=== PATIENT | male | born 1955 | race Caucasian/White ===

== ENCOUNTER 2020-01-02 04:35 | Day surgery (SDC) | payer OTHER, BC ==
[2020-01-01 12:32] VITALS: BMI 30.2
--- NOTE | 2020-01-02 10:22 | HP ---
Satellite [facility] - Chief Complaint Chief Complaint: right elbow pain, numbness - Past Medical History Allergies/Adverse Reactions: Allergies Allergy/AdvReac Type Severity Reaction Status Date / Time No Known Drug Allergies Allergy Verified 01/02/20 08:46 - Current Medications Current Medications: Home Medications Medication Instructions Recorded Atorvastatin Ca [Lipitor] 20 mg PO DAILY 09/02/15 Glimepiride 2 mg PO DAILY 09/02/15 Hydrochlorothiazide [Hctz -] 25 mg PO DAILY 09/02/15 Metformin HCl [Glucophage] 1,000 mg PO BID 09/02/15 Ramipril [Altace] 10 mg PO DAILY 09/02/15 Aspirin [ASA -] 81 mg PO DAILY 01/01/20 Pramipexole Dihydrochloride 0.25 mg PO BID 01/01/20 [Mirapex -] Hydrocodone/Acetaminophen 1 each PO Q6H #12 tablet MDD 4 01/02/20 [Hydrocodone-Acetamin 5-325 mg] Satellite Physical Exam - Physical Examination Vital Signs: Vital Signs Period Temp Pulse Resp BP Sys/Wang Pulse Ox Last 24 Hr 97.0 F 70 18 140/80 97-97 General Appearance: Well Nourished, Well Developed, Alert & Oriented x3 ENT: Clear Lung: Normal air movement Extremities: Other (right elbow- + tinels, + ttp, decr sensation, EMG + ulna neuropathy) Neurological: Intact, Alert, Oriented Satellite Impression/Plan - Impression/Plan Impression: right elbow ulna neuritis Operative Procedure: right elbow ulna nerve neurolysis Date to be Performed: 01/02/20
[2020-01-02] MEDS ORDERED: LIDOCAINE HCL 1%, 10 MG/ML (20ML VIAL) ONE (11:05)
[2020-01-02] MEDS ORDERED: ONDANSETRON 4 MG/2 ML VIAL ONE (11:12)
[2020-01-02] MEDS ORDERED: ceFAZolin SODIUM 1 GM VIAL ONE (11:12)
[2020-01-02] MEDS ORDERED: DEXAMETHASONE SOD PHOSPHATE 4 MG/1 ML VIAL ONE (11:12)
[2020-01-02] MEDS ORDERED: LIDOCAINE HCL 2% JELLY (5 ML/TUBE) ONE (11:12)
[2020-01-02] MEDS ORDERED: PROPOFOL 20 ML ONE ×2 (11:12)
[2020-01-02] MEDS ORDERED: LIDOCAINE HCL/PF 2% SDV 5ML VIAL ONE (11:12)
[2020-01-02] MEDS ORDERED: MIDAZOLAM HCL 2 MG/2 ML SINGLE DOSE VIAL ONE (11:13)
[2020-01-02] MEDS ORDERED: ceFAZolin SODIUM 1 GM VIAL IVPB ONE (11:40)
[2020-01-02] MEDS ORDERED: HYDROmorphone HCl 2 MG/ML VIAL ONE (11:41)
[2020-01-02] MEDS ORDERED: LIDOCAINE HCL 1%, 10 MG/ML (20ML VIAL) NR ONE ×2 (11:50)
[2020-01-02] MEDS ORDERED: BUPIVACAINE HCL/PF 0.5% (5 MG/ML) 30 ML VIAL IJ ONE ×2 (11:50)
--- NOTE | 2020-01-02 12:41 | OP ---
Operative Note - Note: Operative Date: 01/02/20 Pre-Operative Diagnosis: right elbow ulnar nerve neuritis Operation: right elbow ulnar nerve transposition, neurolysis Post-Operative Diagnosis: Same as Pre-op Surgeon: Cong Callejas Anesthesiologist/HYDROPONICS WORKER: Annalee Marie Anesthesia: Local, MAC Estimated Blood Loss (mls): 0 Drains, Volume Out (mls): 0 Blood Volume Replaced (mls): 0 Fluid Volume Replaced (mls): 700 Operative Report Dictated: Yes
--- NOTE | 2020-01-02 13:46 | OP ---
DATE OF OPERATION: 01/02/2020 PREOPERATIVE DIAGNOSIS: Right elbow ulnar nerve neuritis. POSTOPERATIVE DIAGNOSIS: Right elbow ulnar nerve neuritis and excessive scar tissue. PROCEDURE: Right elbow ulnar nerve transposition and neurolysis. SURGEON: Torin Bee MD ASSISTANTS: None. ANESTHESIA: Laryngeal mask anesthesia. Local injection of 20 mL 0.5% Marcaine and 1% lidocaine mix. Sincere Ayon MD; Annalee Marie, REF-CRN DRAINS: None. COMPLICATIONS: None. BLOOD LOSS: None. BLOOD GIVEN: None. FLUID REPLACEMENT: 700 mL Plasmalyte. 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 He had excessive scar tissue. After understanding the potential risks, complications, alternatives and benefits of surgery versus nonsurgical treatment, the patient elected to undergo this procedure. The patient was brought to the operating room, peripheral IV placed, IV sedation given, 2 g IV Ancef was given, LM anesthesia was induced. A tourniquet was applied to the right upper arm. The right upper extremity was prepped and draped in sterile fashion. Elevated, exsanguinated with an Esmarch bandage, the tourniquet inflated to 250 mmHg. The entire case was done under 3.8 loupe magnification. An incision was marked out within the previous incision. Then 20 mL of 0.5% Marcaine with lidocaine mix was injected in and around the surgical incision. The incision was made with a number 15 scalpel blade. Subcutaneous hemostasis was achieved with the bipolar cautery. Immediately it was apparent the patient had excessive postoperative scar tissue. Very careful dissection was done with a Littler scissors through the scar tissue. Weitlaner retractors were placed into the wound to retract the anterior and posterior flaps. The ulnar nerve was identified in the proximal portion of the surgical dissection. Circumferential dissection was done with the Littler scissors and the [place] elevator and I was able to feel it with my finger that the neurolysis was complete proximally. Then, working in a sequential fashion, going from proximal to distal, I used the Littler scissors and the [place] elevator to free it up from scar tissue, where it was going through up until the medial epicondyle and past it. It was released distally in the middle near the epicondyle and proximally. I was able to feel distal and proximal for additional points of compression. The patient had a very rajput medial intermuscular septum, which might have been a point of compression. This was released with a Littler scissors. There was also a significant band of scar tissue distal to the epicondyle near the 2 heads of the FCU. However, it was not Mccoy's ligament, as the nerve was already transposed anterior and superficial to that. The scar tissue was also cut. The patient had a lot of scar tissue right around the medial epicondyle itself and there was an hourglass deformity of the nerve itself. An epineurotomy was performed with a curved iris scissors. I was able to then transpose the nerve easily to a more anterior and subcutaneous position. The area was copiously irrigated and washed out. I put the elbow through full range of motion, directly visualizing the ulnar nerve. There were no points of compression, did not seem to be pulled under undue tension. A subcutaneous flap had been raised and the nerve was now transposed into a subcutaneous position with ample adipose tissue. A 0 Vicryl suture was used to close this deep adipose layer down to the tissue of the medial epicondyle, incorporating the posterior deep dermal layer as well. Multiple stitches were done in this fashion. I was able to floss the nerve. It moved well. I was able to feel that it was in a good subcutaneous tunnel with no points of compression. I then did the final distal and proximal suture. Next, the area was copiously irrigated and washed out. The closure had been done with the elbow at about 60 degrees of flexion, in order to transpose the nerve more anteriorly for a safer position for closure. Now, the deep dermal layer was closed with 4-0 undyed Vicryl. Final skin reapproximation was done with a running subcuticular 4-0 Biosyn stitch. The area was then washed and dried, covered with Steri-Strips, 4x4 Webril, and a 4-inch posterior Ortho-Glass splint was applied, wrapped with 2 Maurice bandages. The tourniquet was taken down after a total tourniquet time of about 45 minutes. There was no complication during the case. The patient tolerated the procedure quite well, was brought to the ambulatory recovery room in stable condition. TORIN BEE M.D. [id number]
[2020-01-02 14:55] VITALS: BP 146/95; PULSE 76; TEMP 97.8
== END 2020-01-02 15:00 | disposition home or self-care (01) ==
LOC: JASU-SURG 04:35
PROVIDERS: ATTEND Orthopaedic Surgery
PROC: 01N40ZZ Release Ulnar Nerve, Open Approach (ICD-10-PCS; 2020-01-02)
PROC: 01S40ZZ Reposition Ulnar Nerve, Open Approach (ICD-10-PCS; principal; 2020-01-02 10:30)
DX: G56.21 Lesion of ulnar nerve, right upper limb (principal); I10 Essential (primary) hypertension; E11.9 Type 2 diabetes mellitus without complications
CPT/HCPCS: 82962; 94760

== ENCOUNTER 2020-08-25 04:29 | Day surgery (SDC) | payer OTHER, BC ==
[2020-08-21 13:45] VITALS: BMI 31.8
[2020-08-25] MEDS ORDERED: DEXAMETHASONE SOD PHOSPHATE/PF 10 MG/ML SDV ONE (09:34)
[2020-08-25] MEDS ORDERED: MIDAZOLAM HCL 2 MG/2 ML SINGLE DOSE VIAL ONE ×2 (09:35)
[2020-08-25] MEDS ORDERED: ceFAZolin SODIUM 1 GM VIAL IVPB ONE (10:50)
[2020-08-25] MEDS ORDERED: PROPOFOL 20 ML ONE ×2 (11:45→11:46)
[2020-08-25] MEDS ORDERED: oxyCODONE HCL 5 MG TABLET PO PRN (12:48)
[2020-08-25] MEDS ORDERED: ONDANSETRON 4 MG/2 ML VIAL IVPUSH PRN (12:48)
[2020-08-25] MEDS ORDERED: LACTATED RINGERS SOLUTION 1,000 ML IV SCH (13:00)
[2020-08-25 14:51] VITALS: PULSE 72; TEMP 97.9
[2020-08-25 14:57] VITALS: BP 134/68
== END 2020-08-25 14:30 | disposition home or self-care (01) ==
LOC: JASU-SURG 04:29
PROVIDERS: ATTEND Orthopaedic Surgery
PROC: 0RHJ44Z Insertion of Internal Fixation Device into Right Shoulder Joint, Percutaneous Endoscopic Approach (ICD-10-PCS; 2020-08-25)
PROC: 0RNJ4ZZ Release Right Shoulder Joint, Percutaneous Endoscopic Approach (ICD-10-PCS; principal; 2020-08-25 10:00)
PROC: 0LM14ZZ Reattachment of Right Shoulder Tendon, Percutaneous Endoscopic Approach (ICD-10-PCS; 2020-08-25 10:00)
DX: M75.121 Complete rotator cuff tear or rupture of right shoulder, not specified as traumatic (principal); M75.41 Impingement syndrome of right shoulder; I12.9 Hypertensive chronic kidney disease with stage 1 through stage 4 chronic kidney disease, or unspecified chronic kidney disease; E11.22 Type 2 diabetes mellitus with diabetic chronic kidney disease; N18.30 Chronic kidney disease, stage 3 unspecified; Z86.16 Personal history of COVID-19
CPT/HCPCS: 82962; 88304-TC; 94760